=== PATIENT | female | born 1965 | race Caucasian/White ===

== ENCOUNTER 2020-07-25 09:16 | Outpatient (REF) | payer OTHER, SELFPAY ==
[2020-07-25 09:58] LABS: MANUAL DIFF FLAG NO
[2020-07-25 10:02] LABS: Basophils Absolute Auto 0.1 X10*3/uL (0.0-0.2); Basophils Percent Auto 1.1 % (0-2); Eosinophils Percent Auto 0.4 % (0-4); Hematocrit 28.2 % (37-47); Hemoglobin 7.1 g/dl (12.0-16.0); Imm Gran Abs Auto 0.01 X10*3/uL (0.00-0.03); Imm Gran Pct Auto 0.2 % (0.0-0.4); Lymphocytes Absolute Auto 2.3 X10*3/uL (1.2-4.9); Lymphocytes Percent Auto 43.4 % (20-40); Mean Corpuscular HGB Conc 25.2 g/dl (31.0-35.0); Mean Corpuscular Hemoglobin 15.6 pg (27.0-33.0); Monocytes Absolute Auto 0.7 X10*3/uL (0.1-1.2); Monocytes Percent Auto 12.1 % (2-11); Neutrophils Absolute Auto 2.3 X10*3/uL (2.0-8.3); Neutrophils Percent Auto 42.8 % (45-73); Platelet Count 341 X10*3/uL (160-400); Red Blood Count 4.54 X10*6/uL (4.20-5.50); Red Cell Distribution Width 19.9 % (11.0-16.0); White Blood Count 5.4 X10*3/uL (4.8-10.8)
[2020-07-25 10:04] LABS: Mean Corpuscular Volume 62.1 fL (80-98)
[2020-07-25 10:30] LABS: Blood Urea Nitrogen 13 mg/dL (9-16); Calcium 8.2 mg/dL (8.4-10.2); Chloride 106 mmol/L (96-108); Cholesterol 132 mg/dL
[2020-07-25 10:31] LABS: Alanine Aminotransferase 24 U/L (0-31); Albumin Level 3.7 g/dL (3.5-5.0); Alkaline Phosphatase 91 U/L (39-117); Anion Gap 12 (12-20); Aspartate Amino Transferase 30 U/L (5-31); Bilirubin Total 0.6 mg/dL (0.0-1.0); Carbon Dioxide 26 mmol/L (22-29); Estimated Glomerular Filt Rate > 60; Glucose Fasting 88 mg/dL (60-99); HDL Cholesterol 42 mg/dL; LDL Cholesterol Calculated 76 mg/dl; Potassium 4.5 mmol/l (3.3-5.1); Sodium 139 mmol/L (135-145); Total Protein 6.9 g/dL (6.5-8.0); Triglycerides 72 mg/dL
[2020-07-25 10:48] LABS: Free T4 (Free Thyroxine) 1.08 ng/dL (0.71-1.85); Thyroid Stimulating Hormone 1.76 uIU/mL (0.32-4.0)
[2020-07-25 10:56] LABS: Lipase 153 U/L (8-78)
[2020-07-25 11:06] LABS: Erythrocyte Sedimentation Rate 14 MM/HR (0-20)
[2020-07-25 11:10] LABS: Glucose Urine UA NEG (NEG); Leukocyte Esterase Urine NEG (NEG); Nitrite Urine NEG (NEG); PH 7.5 (5.0-8.0); Urine Blood NEG (NEG); Urine Ketones NEG (NEG); Urine Protein NEG (NEG-TRACE)
[2020-07-25 11:18] LABS: Appearance Urine CLEAR; Color Urine YELLOW
== END 2020-07-25 09:17 | disposition home or self-care (01) ==
LOC: HO.LAB 09:16
PROVIDERS: PCP Internal Medicine; Visit Provider Internal Medicine
DX: Z00.00 Encounter for general adult medical examination without abnormal findings (principal); R10.9 Unspecified abdominal pain; I83.10 Varicose veins of unspecified lower extremity with inflammation; E04.1 Nontoxic single thyroid nodule; E66.9 Obesity, unspecified
CPT/HCPCS: 36415; 80053; 80061; 81003; 83690; 84439; 84443; 85025; 85060; 85652

== ENCOUNTER 2020-08-17 09:52 | Outpatient (REF) | payer OTHER, SELFPAY ==
--- NOTE | 2020-08-17 09:55 | US_ITS ---
EXAMINATION: US THYROID CLINICAL INFORMATION: Thyroid nodule. COMPARISON: None TECHNIQUE: Linear transducer kumar-scale and color Doppler examination with attention to the region of the thyroid. FINDINGS: SIZE: Measurements of the thyroid lobes and nodules are given in sagittal, anteroposterior and transverse dimensions respectively. Right Thyroid Lobe: 5.5 x 2.4 x 2.2 cm, volume 15.1 mL. Parenchyma: The gland echotexture is heterogeneous. Thyroid vascularity is increased. Left Thyroid Lobe: 5.0 x 1.6 x 1.5 cm, volume 6.4 mL. Parenchyma: The gland echotexture is homogeneous. Thyroid vascularity is normal. Isthmus: 0.54 cm in maximum AP dimension. RIGHT THYROID LOBE: There are 2 nodules seen. 1. Location: Upper. Size: 0.6 x 0.4 x 0.48 cm. Nodule characteristics: Hypoechoic, smoothly marginated with intranodular flow.. 2. Location: Mid/lower. Size: 3.4 x 2.2 x 2.6 cm. Nodule characteristics: Hypoechoic, smoothly marginated with intranodular flow. ISTHMUS: There is 1 nodule seen. 1. Location: Upper isthmus. Size: 0.61 x 0.41 x 0.53 cm. Nodule characteristics: Hypoechoic, smoothly marginated with intranodular flow. LEFT THYROID LOBE: No nodules. NODES: No lymphadenopathy is seen in the tissue surrounding the thyroid gland. US/US thyroid IMPRESSION: Solitary spongiform-appearing nodule mid to lower pole right kidney, very low suspicion. Small subcentimeter nodules low suspicion. Various management parameters for solitary thyroid nodules are in the literature. According to the latest 2016 [place] [employer] guidelines, recommendations for thyroid nodules are as follows: Benign: Purely cystic nodules (no solid component). Estimated risk of malignancy < 1%. Recommendation: No biopsy or ultrasound follow up required. Very low suspicion: SPONGIFORM OR PARTIALLY CYSTIC NODULES without any of the sonographic features described in low, intermediate or high suspicions patterns. Estimated risk of malignancy < 3%. Recommendation: Consider FNA at > 2 cm. Observation without FNA is also a reasonable option. Recommend repeat ultrasound in 24 months for nodules measuring greater than 1 cm. Nodule measuring less than 1 cm do not require ultrasound follow up. Low suspicion: Isoechoic or hyperechoic solid nodule, or partially cystic nodule with eccentric solid areas, without microcalcification, irregular margin or extrathyroidal extension, or taller than wide shape. Estimated risk of malignancy 5-10%. Recommendation: FNA at > 1.5 cm. Recommend repeat ultrasound in 12-24 months for nodules measuring less than 1.5 cm. Intermediate suspicion: Hypoechoic solid nodule with smooth margins without microcalcification, extrathyroidal extension, or taller than wide shape. Estimated risk of malignancy 10-20%. Recommendation: FNA at > 1 cm. Recommend repeat ultrasound in 12-24 months for nodules measuring less than 1 cm. High suspicion: Solid hypoechoic nodule or solid hypoechoic component of a partially cystic nodule with one or more of the following features: irregular margins (infiltrative, microlobulated), microcalcifications, taller than wide shape, rim calcifications with small extrusive soft tissue component, evidence of extrathyroidal extension. Estimated risk of malignancy > 70-90%. Recommendation: FNA at > 1 cm. Recommend repeat ultrasound in 6-12 months for nodules measuring less than 1 cm. Follow-up as per HPI guidelines
== END 2020-08-17 09:53 | disposition home or self-care (01) ==
LOC: HO.US 09:52
PROVIDERS: Visit Provider Internal Medicine
DX: E04.1 Nontoxic single thyroid nodule (principal)
CPT/HCPCS: 76536

== ENCOUNTER 2020-08-20 07:59 | Outpatient (REF) | payer OTHER, SELFPAY | END 2020-08-20 08:00 | disposition home or self-care (01) | LOC: HO.MDS 07:59 | PROVIDERS: PCP Internal Medicine; Visit Provider Internal Medicine | DX: D50.9 Iron deficiency anemia, unspecified (principal) | CPT/HCPCS: 96365; 96366; J1200; J1750; Q0163 ==

== ENCOUNTER → 2020-09-01 09:29 | Outpatient (BNVA) | payer OTHER, SELFPAY | PROVIDERS: PCP Internal Medicine; Visit Provider Surgery Vascular Surgery | DX: I83.11 Varicose veins of right lower extremity with inflammation (principal) | CPT/HCPCS: 99202 ==

== ENCOUNTER 2020-09-30 10:07 | Outpatient (REF) | payer OTHER, SELFPAY ==
--- NOTE | ~2020-09-30 | US_ITS ---
EXAMINATION: BILATERAL LOWER EXTREMITY VENOUS ULTRASOUND (Reflux Exam) CLINICAL INDICATION: This a 55-year-old female with venous insufficiency. Varicose veins with inflammation. COMPARISON: None. TECHNIQUE: Color flow triplex imaging and compression Doppler was performed to evaluate both the deep and the superficial systems bilaterally. To evaluate the superficial system, the examination was performed in the upright position. Color-flow Doppler ultrasound and compression ultrasound were utilized. In addition, maneuvers were utilized to demonstrate reflux. FINDINGS: 1. DEEP VENOUS ULTRASOUND OF THE RIGHT LOWER EXTREMITY: Common Femoral Vein: Compressible, normal respiratory variation and augmented flow. Femoral vein: Compressible, normal color flow and augmentation. Popliteal Vein: Compressible, normal augmentation. Deep Reflux: There is no evidence of reflux in the deep system in either the common femoral vein or the popliteal vein. . There is no evidence of a Canchola's cyst. 2. SUPERFICIAL ULTRASOUND WITH DOPPLER OF RIGHT LOWER EXTREMITY GREAT SAPHENOUS VEIN: Saphenofemoral junction: 0.9 cm. There is no reflux at the saphenofemoral junction. Mid thigh: 0.5 cm. The reflux time is greater than 3 seconds, measuring 3084 ms. Above knee: 0.6 cm. The reflux time is 2008 ms. Below knee: 0.3 cm. There is no reflux at this level. Mid calf: 0.2 cm. There is no reflux this level. Ankle: 0.2 cm. There is no reflux this level. GSV REFLUX: There is isolated reflux beginning in the proximal thigh. DUPLICATED GREAT SAPHENOUS VEIN: There is a duplicated right great saphenous vein measuring 0.5 cm without reflux. SMALL SAPHENOUS VEIN: Upper: 0.4 cm Lower: 0.3 cm SSV REFLUX: No evidence of reflux. VEIN OF GIACOMINI: None Imaged. PERFORATORS: There is a 0.5 cm bracelet maker novelty off the right great saphenous vein in the proximal calf with the reflux time of 944 ms. There is a bracelet maker novelty off the proximal calf off the right great saphenous vein measuring 0.2 cm without reflux. VARICOSITIES: There are multiple varicose veins measuring 0.3 cm and 0.4 cm, respectively with reflux. In the proximal calf off the right great saphenous vein with the reflux time of 2656 ms. In the proximal calf of the right great saphenous vein measuring 1300 ms of reflux. There is a focal area of superficial thrombophlebitis in the proximal right calf varicosity. 3. DEEP VENOUS ULTRASOUND OF THE LEFT LOWER EXTREMITY: Common Femoral Vein: Compressible, normal respiratory variation and augmented flow. Femoral vein: Compressible, normal color flow and augmentation. Popliteal Vein: Compressible, normal augmentation. Deep Reflux: There is no evidence of reflux in the deep system in either the common femoral vein or the popliteal vein. There is no evidence of a Canchola's cyst. 4. SUPERFICIAL ULTRASOUND WITH DOPPLER OF LEFT LOWER EXTREMITY GREAT SAPHENOUS VEIN: Saphenofemoral junction: 0.5 cm. There is no reflux at this level. Mid thigh: 0.4 cm Above knee: 0.3 cm. There is no reflux at this level and above. Below knee: 0.2 cm. There is reflux of 1696 ms. Mid calf: 0.2 cm. There is no reflux at this level. Ankle: 0.2 cm. There is no reflux at this level. GSV REFLUX: No evidence of reflux. DUPLICATED GREAT SAPHENOUS VEIN: There is a 0.4 cm left duplicated medial great saphenous vein without reflux. SMALL SAPHENOUS VEIN: Upper: 0.5 cm Lower: 0.4 cm SSV REFLUX: No evidence of reflux. VEIN OF GIACOMINI: None Imaged. PERFORATORS: There is a 0.3 cm bracelet maker novelty off the left great saphenous vein in the mid calf without reflux. VARICOSITIES: None Imaged US/US venous duplex LE BI IMPRESSION: 1. There is a patent right great saphenous vein without reflux at the saphenofemoral junction. There is reflux of begins at the right proximal thigh which extends to the knee. At these levels the reflux is greater than 500 ms. 2. There is a patent right lateral great saphenous vein without reflux. 3. There is a patent right small saphenous vein measuring 0.4 cm without reflux at the junction. 4. There are perforators and varicose veins measure greater than 0.3 cm with reflux noted in the right calf. 5. There is focal superficial thrombophlebitis in a right calf varicose vein. 6. There is a patent left great saphenous vein with only isolated reflux at the below-knee region but not at the saphenofemoral junction. 7. There is a duplicated left medial great saphenous vein without reflux. 8. There is a patent left small saphenous vein without reflux. 9. There are perforators in the left mid calf without reflux.
== END 2020-09-30 10:08 | disposition home or self-care (01) ==
LOC: HO.US 10:07
PROVIDERS: Visit Provider Surgery Vascular Surgery
DX: I83.893 Varicose veins of bilateral lower extremities with other complications (principal); I83.11 Varicose veins of right lower extremity with inflammation
CPT/HCPCS: 93970

== ENCOUNTER 2021-09-15 09:46 | Outpatient (REF) | payer OTHER, SELFPAY ==
--- NOTE | ~2021-09-15 | MM_ITS ---
EXAMINATION: MM SCREENING DIGITAL BREAST TOMOSYNTHESIS, BILATERAL CLINICAL INFORMATION: Screening. Asymptomatic. The lifetime risk of breast cancer based on the Tyrer-Cuzick Model is 6%. COMPARISON: None (current study represents new baseline exam). TECHNIQUE: Digital breast tomosynthesis is performed in both the craniocaudal and mediolateral oblique views along with computer-aided detection (CAD). Synthesized 2D images are generated from the tomosynthesis. FINDINGS: There are scattered areas of fibroglandular density (ACR BI-RADS breast composition Category b). There are no significant masses, abnormal calcifications, or other abnormalities. Small circumscribed nodule mid inner right breast on CC view has notch-like contour on MLO tomography suggesting intramammary node. The axillary and skin contours are unremarkable. MM/MM tomosynthesis screening BI IMPRESSION: No mammographic evidence of malignancy. ASSESSMENT: BI-RADS 2: Benign RECOMMENDATION: Routine annual mammography screening. This patient's information was entered into a reminder system with a target due date for their next mammogram.
== END 2021-09-15 09:47 | disposition home or self-care (01) ==
LOC: HO.MAMMO 09:46
PROVIDERS: PCP Internal Medicine; Visit Provider Internal Medicine
DX: Z12.31 Encounter for screening mammogram for malignant neoplasm of breast (principal)
CPT/HCPCS: 77063; 77067

== ENCOUNTER 2022-08-17 13:14 | Outpatient (REF) | payer OTHER, SELFPAY ==
--- NOTE | ~2022-08-17 | XR_ITS ---
EXAMINATION: XR HAND, RIGHT CLINICAL INFORMATION: Right index finger pain. COMPARISON: None TECHNIQUE: PA, lateral, and oblique views of the right hand. FINDINGS: There is no evidence of acute fracture or dislocation of the right hand. No destructive bony lesions identified. Joint spaces are generally maintained. There is some mild spurring seen about the distal interphalangeal joints of the 2nd, 3rd, and 5th fingers. No definite erosive changes are identified. XR/XR hand RT 2V IMPRESSION: Mild degenerative change of the right hand as described without evidence of acute fracture or dislocation.
--- NOTE | ~2022-08-17 | XR_ITS ---
EXAMINATION: XR SHOULDER, LEFT CLINICAL INFORMATION: Left shoulder pain. COMPARISON: 07/13/2011 TECHNIQUE: AP external rotation, Grashey, scapular Y, and axillary views of the left shoulder. FINDINGS: There is no evidence of acute fracture or dislocation of the right shoulder. No evidence of calcific tendinitis. Acromioclavicular joint appears unremarkable. No widening of the coracoclavicular space is seen. There is minor spurring about the glenohumeral joint without joint space narrowing. XR/XR shoulder LT min 2V IMPRESSION: Mild degenerative change of the glenohumeral joint.
== END 2022-08-17 13:15 | disposition home or self-care (01) ==
LOC: HO.XRAY 13:14
PROVIDERS: PCP Internal Medicine; Visit Provider Internal Medicine
DX: M25.512 Pain in left shoulder (principal); M79.641 Pain in right hand
CPT/HCPCS: 73030; 73120

== ENCOUNTER 2022-08-31 10:28 | Outpatient (REF) | payer OTHER, SELFPAY ==
--- NOTE | ~2022-08-31 | US_ITS ---
EXAMINATION: US THYROID CLINICAL INFORMATION: Nontoxic single thyroid nodule. COMPARISON: Ultrasound soft tissue head/neck thyroid dated 08/17/2020. TECHNIQUE: Linear transducer grayscale and color Doppler examination with attention to the region of the thyroid. FINDINGS: SIZE: Measurements of the thyroid lobes and nodules are given in sagittal, anteroposterior and transverse dimensions respectively. Right Thyroid Lobe: 6.3 x 2.5 x 2.8 cm, volume 23.1 mL. Previously 5.5 x 2.4 x 2.2 cm, volume 15.1 mL. Parenchyma: The gland echotexture is heterogeneous. Thyroid vascularity is normal. Left Thyroid Lobe: 4.4 x 1.7 x 1.7 cm, volume 6.7 mL. Previously 5.0 x 1.6 x 1.5 cm, volume 6.4 mL. Parenchyma: The gland echotexture is homogeneous. Thyroid vascularity is normal. Isthmus: 0.6 cm in maximum AP dimension. Previously 0.5 cm. Estimated total number of nodules greater than or equal to 1 cm: 1. E Learning Manager nodules are described as follows: 1. Location: Right superior. Size: 0.7 x 0.4 x 0.6 cm, volume 0.09 mL. Previously: 0.6 x 0.4 x 0.48 cm, volume 0.06 mL. Nodule characteristics: Composition: Solid/almost completely solid (2). Echogenicity: Hypoechoic (2). Shape: Not taller than wide (0). Margins: Smooth (0). Echogenic Foci: None (0). ACR TI-RADS total points: 4 ACR TI-RADS category: 4 Significant change in size (>/= 20% in 2 dimensions and minimal increase of 2 mm or 50% or greater increase in volume): No Change in features: No Change in ACR TI-RADS risk category: No 2. Location: Right mid/inferior. Size: 3.3 x 2.4 x 3.3 cm, volume 13.7 mL. Previously: 3.4 x 2.2 x 2.6 cm, volume 10.2 mL. Nodule characteristics: Composition: Mixed cystic and solid (1). Echogenicity: Isoechoic (1). Shape: Not taller than wide (0). Margins: Smooth (0). Echogenic Foci: None (0). ACR TI-RADS total points: 2 ACR TI-RADS category: 2 Significant change in size (>/= 20% in 2 dimensions and minimal increase of 2 mm or 50% or greater increase in volume): No Change in features: No Change in ACR TI-RADS risk category: No NODES: No lymphadenopathy is seen in the tissue surrounding the thyroid gland. US/US thyroid IMPRESSION: 2 unchanged thyroid nodules, the largest 3.3 cm in the right inferior thyroid. No imaging follow-up recommended per ACR TI-RADS criteria. ACR TI-RADS RECOMMENDATION REFERENCE: Ultrasound-guided fine-needle aspiration, followup ultrasound, no further follow up. * TR1 (0 point) and TR 2 (2 points): No FNA or follow up * TR3 (3 points): FNA if more than or equal to 2.5 cm in maximum dimension, followup ultrasound in 1, 3 and 5 years if 1.5 to 2.4 cm in maximum dimension. * TR4 (4-6 points): FNA if more than or equal to 1.5 cm in maximum dimension, followup ultrasound in 1, 2, 3 and 5 years if 1 to 1.4 cm in maximum dimension. * TR5 (more than or equal to 7 points): FNA if more than or equal to 1 cm in maximum dimension, followup ultrasound every year for 5 years if 0.5 to 0.9 cm in maximum dimension. * TR3, TR4 or TR5 nodules that are below the size threshold for follow up receive no follow up.
== END 2022-08-31 10:29 | disposition home or self-care (01) ==
LOC: HO.US 10:28
PROVIDERS: Visit Provider Internal Medicine
DX: E04.1 Nontoxic single thyroid nodule (principal)
CPT/HCPCS: 76536

== ENCOUNTER → 2022-09-01 10:40 | Outpatient (BNVA) | payer OTHER, SELFPAY | PROVIDERS: PCP Internal Medicine; Visit Provider Physician Assistant | DX: M19.012 Primary osteoarthritis, left shoulder (principal); M75.82 Other shoulder lesions, left shoulder; M77.8 Other enthesopathies, not elsewhere classified | CPT/HCPCS: 99202 ==

== ENCOUNTER 2022-09-21 09:56 | Outpatient (REF) | payer OTHER, SELFPAY ==
--- NOTE | ~2022-09-21 | MM_ITS ---
EXAMINATION: MM SCREENING DIGITAL BREAST TOMOSYNTHESIS, BILATERAL CLINICAL INFORMATION: Screening. Asymptomatic. The lifetime risk of breast cancer based on the Tyrer-Cuzick Model is 6%. COMPARISON: Mammography: 09/15/2021 (new baseline) TECHNIQUE: Digital breast tomosynthesis is performed in both the craniocaudal and mediolateral oblique views along with computer-aided detection (CAD). Synthesized 2D images are generated from the tomosynthesis. Additional views are obtained: Right MLO, left MLO x2. FINDINGS: There are scattered areas of fibroglandular density (ACR BI-RADS breast composition Category b). There are no significant masses, abnormal calcifications, or other abnormalities. Recommend pattern is similar to prior new baseline exam. There is a stable small nodule anterior medial right breast possibly intraparenchymal node. No developing density or architectural abnormality. The axilla are unremarkable. MM/MM tomosynthesis screening BI IMPRESSION: No mammographic evidence of malignancy. ASSESSMENT: BI-RADS 2: Benign RECOMMENDATION: Routine annual mammography screening. This patient's information was entered into a reminder system with a target due date for their next mammogram.
== END 2022-09-21 09:57 | disposition home or self-care (01) ==
LOC: HO.MAMMO 09:56
PROVIDERS: PCP Internal Medicine; Visit Provider Internal Medicine
DX: Z12.31 Encounter for screening mammogram for malignant neoplasm of breast (principal)
CPT/HCPCS: 77063; 77067

== ENCOUNTER 2022-10-25 11:00 | Outpatient (RCR) | payer OTHER, SELFPAY ==
--- NOTE | 2022-09-23 11:01 | MHC.PT.EP ---
[facility] [place] [facility] [place] [facility] [place] [facility] [address] Ravi Escudero [address] [phone] F: [phone] F: [phone] F: [phone] F: [phone] Physical Therapy Plan of Care Date of Evaluation: Date of Surgery: Diagnosis: PT eval and treat- M77.8 Other entheseopatheies ROM gentle, strength, RTC and periscap L shoulder tendonitis signed by CLARISA Silva 09/01/22 Assessment: Pt is RHD 57 y/o female, referred to PT for treatment of L shoulder pain following history of sx which have been going on for the past few months. Pt expressing one day she observed her inability to lift a 3# weight overhead when attempting to exercise. Pt exhibits decreased active ROM into abduction, (+) Hernandez- Nam, and painful arc. Pt exhibits weakness and reports difficulty reaching over her head. Intolerance for holding/carrying/lifting objects over her head into the cabinet. She expresses sx with reaching behind her back and with end range ER. Pt would benefit from skilled PT services 2x/week x 4 weeks to address impairments in ROM/strength. Concern for possible RTC compromise is noted due to GH mechanics, weakness, history of repetitive work history, onset of sx, and impaired ROM/special testing. Pt will be implemented in an AAROM program, periscap and RTC strengthening program. Pt reports deferring option of receiving a cortisone injection at time of her appt on 09/01/22. She expresses difficulty sleeping and poor tolerance for SL positions/transitional movements. PMH significant for history of severe iron deficiency anemia resulting in hx previous iron infusions, gastric bypass surgery, and b12 deficiency. Pt is employed as a van pool driver engineer and denies difficulty with work tasks in regard to her L shoulder sx. Frequency and Duration: The patient will be seen 1-2x/week x 4 weeks Short Term Goals: 1. AAROM L shoulder flexion to 130 degrees. 2. Initiate scapular strengthening activities. 3. Initiate HEP. 4. AAROM IR to midline L4. 5. AAROM scaption to 120 degrees to be able to reach overhead with L UE. Bottle Inspector Goals: 1. I HEP. 2. Strength 5/5 R shoulder abduction. 3. Active elevation with good understanding joint protection. 4. Good lifting mechanics overhead with sx <2/10 L shoulder. 5. AAROM IR midline L2. Treatment Plan: Modalities to reduce pain, spasms and effusion. Manual therapy to restore motion and function. Therapeutic exercise to improve strength and flexibility. Neuromuscular re-education for posture and balance. Therapeutic activities to return to functional activities of daily living. Electronically signed by: Tonya Pickett PT, DPT Please sign and return to therapist. Thank you for your referral.
== END 2023-09-14 08:42 | disposition home or self-care (01) ==
LOC: HO.PTWFD 11:00
PROVIDERS: PCP Internal Medicine; Visit Provider Physician Assistant
DX: M77.8 Other enthesopathies, not elsewhere classified (principal)
CPT/HCPCS: 97110; 97140; 97161; 97535

== ENCOUNTER → 2022-11-07 10:01 | Outpatient (BNVA) | payer OTHER, SELFPAY | PROVIDERS: PCP Internal Medicine; Visit Provider Physician Assistant | DX: M77.8 Other enthesopathies, not elsewhere classified (principal); M75.82 Other shoulder lesions, left shoulder; M19.012 Primary osteoarthritis, left shoulder | CPT/HCPCS: 99212 ==

== ENCOUNTER 2022-12-08 07:45 | Outpatient (REF) | payer OTHER, SELFPAY ==
[2022-12-08 07:56] LABS: MANUAL DIFF FLAG NO
[2022-12-08 08:18] LABS: Basophils Percent Auto 0.6 % (0-2); Eosinophils Absolute Auto 0.3 X10*3/uL (0.0-0.4); Hematocrit 45.4 % (37.0-47.0); Hemoglobin 14.8 g/dl (12.0-16.0); Imm Gran Abs Auto 0.01 X10*3/uL (0.00-0.03); Imm Gran Pct Auto 0.2 % (0.0-0.4); Immature Retic Fraction 8.8 % (3.0-15.9); Lymphocytes Absolute Auto 2.4 X10*3/uL (1.2-4.9); Lymphocytes Percent Auto 36.3 % (20-40); Mean Corpuscular HGB Conc 32.6 g/dl (31.0-35.0); Mean Corpuscular Volume 91.9 fL (80.0-98.0); Mean Platelet Volume 9.7 fL (9.4-12.3); Monocytes Absolute Auto 0.7 X10*3/uL (0.1-1.2); Neutrophils Absolute Auto 3.2 x10*3/uL (2.0-8.3); Neutrophils Percent Auto 48.9 % (45-73); Platelet Count 254 X10*3/uL (160-400); Red Blood Count 4.94 X10*6/uL (4.20-5.50); Retic HGB Equivalent 36.3 pg (30.0-35.0); Reticulocyte Percent 2.1 % (0.5-1.8); Reticulocytes Absolute 0.104 X10*6/uL (0.026-0.095); White Blood Count 6.5 X10*3/uL (4.8-10.8)
[2022-12-08 08:53] LABS: Alanine Aminotransferase 30 U/L (0-31); Alkaline Phosphatase 96 U/L (39-117); Anion Gap 13 (12-20); Aspartate Amino Transferase 22 U/L (5-31); Bilirubin Total 0.4 mg/dL (0.0-1.0); Blood Urea Nitrogen 15 mg/dL (9-16); Calcium 8.7 mg/dL (8.4-10.2); Carbon Dioxide 27 mmol/L (22-29); Chloride 107 mmol/L (96-108); Cholesterol 221 mg/dL; Estimated Glomerular Filt Rate > 60; Glucose Random 93 mg/dL (60-115); HDL Cholesterol 55 mg/dL; Iron 93 mcg/dL (30-160); LDL Cholesterol Calculated 138 mg/dl; Percent Iron Saturation 27 % (15-50); Potassium 4.5 mmol/L (3.3-5.1); Sodium 142 mmol/L (135-145); Total Iron Binding Capacity 343 mcg/dL (228-428); Total Protein 6.7 g/dL (6.5-8.0); Triglycerides 144 mg/dL; Unsaturated Iron Binding 250 ug/dL
[2022-12-08 09:24] LABS: Ferritin 17 ng/mL (10-250); Free T4 (Free Thyroxine) 0.96 ng/dL (0.71-1.85); Thyroid Stimulating Hormone 2.34 uIU/mL (0.32-4.0); Vitamin B12 1628 pg/mL (200-900); Vitamin D 25-OH Total 33.2 ng/mL (>30)
== END 2022-12-08 07:46 | disposition home or self-care (01) ==
LOC: HO.LAB 07:45
PROVIDERS: PCP Internal Medicine; Visit Provider Internal Medicine
DX: D50.9 Iron deficiency anemia, unspecified (principal); E66.9 Obesity, unspecified; E78.00 Pure hypercholesterolemia, unspecified
CPT/HCPCS: 36415; 80053; 80061; 82306; 82607; 82728; 82746; 83540; 84439; 84443; 85025; 85045

== ENCOUNTER 2023-08-08 10:09 | Outpatient (AMB) | payer OTHER, SELFPAY ==
[2023-08-08 10:10] VITALS: BP 124/86; PULSE 70; O2SAT 97; BMI 43.0
--- NOTE | 2023-08-08 10:10 | A.OFFPC_ITS ---
Vital Signs 08/08/23 10:10 Height 5 ft 3 in Weight 242 lb 8 oz BMI 43.0 BP 124/86 Blood Pressure Location Lt brachial Position Sitting Pulse 70 Pulse Source Pulse Oximeter Pulse Oximetry (%) 97 Oxygen Delivery Method Room Air Intake Visit Reasons: PE+ NEEDS PHQ9/THRIVE Adult Basic Education Manager Required: No Accompanied by: Self / Same As Patient Allergies adhesive Allergy (Intermediate, Verified 08/08/23 10:10) Blister oxycodone [From Percocet] Adverse Reaction (Verified 08/08/23 10:10) Nausea Medication List - Last Reconciled 08/08/23 by Clemente Fermin MD acetaminophen (Tylenol Extra Strength) 500 mg PO QID PRN cyanocobalamin (vitamin B-12) (Vitamin B-12) 1,000 mcg PO DAILY multivitamin 1 tab PO DAILY Tobacco use date assessed: 01/25/23 Dental Screening Dental Screen Date: 08/08/23 Did you have a dental visit in the last 12 months?: No Did you have a dental problem in the last 6 months where you did not have access to dental care?: No Was dental information given to patient?: No HPI PE+ NEEDS PHQ9/THRIVE HPI Details 58-year-old obese female with a history of hypercholesterolemia coming in for physical exam. Last seen in January 2023 follows up with thyroid nodule on the right and left shoulder pain. [facility] Medical History (Updated 08/08/23 @ 10:52 by Clemente Fermin MD) Colon cancer screening Breast cancer screening by mammogram Colonoscopy refused Thrombophlebitis of right leg Obesity (BMI 30-39.9) Varicose veins of lower extremities with inflammation Right thyroid nodule Surgical History S/P gastric bypass Previous section Family History Maternal Aunt Diabetes mellitus Father Medical history unknown FH: prostate cancer Mother Hypertension Social History (Updated 08/08/23 @ 10:44 by Clemente Fermin MD) Housing: Apartment Alcohol intake: current Alcohol intake frequency: holidays/special occasions only Comment: once a week2 beers Patient Tobacco Use Status: Never used Tobacco e-Cigarette/Vaping Use: Never Used Second Hand Smoke Exposure: No service: No Current occupational status: employed Current occupation: [employer] Gender identity: Female Cognitive needs: No Hearing needs: No Vision needs: Yes Questionnaire PHQ-9 Over the last 2 weeks, how often have you been bothered by any of the following problems? 1. Little interest or pleasure in doing things: not at all 2. Feeling down, depressed, or hopeless: not at all 3. Trouble falling or staying asleep, or sleeping too much: not at all 4. Feeling tired or having little energy: not at all 5. Poor appetite or overeating: not at all 6. Feeling bad about yourself - or that you are a failure or have let yourself or your family down: not at all 7. Trouble concentrating on things, such as reading the newspaper or watching television: not at all 8. Moving or speaking so slowly that other people could have noticed. Or the opposite - being so fidgety or restless that you have been moving around a lot more than usual: not at all 9. Thoughts that you would be better off or of hurting yourself in some way: not at all Total score: 0 Depression Screening Interpretation: Negative Depression Screening Done: Yes 63193 - PHQ-9 Billing: Yes Source: Developed by Drs. Abraham Leavitt, Joan Cortes, Navin Martin and colleagues, with an educational edith from [employer]. Thrive Questionnaire Date Thrive assessed: 08/08/23 I am a: Patient What is your living situation today?: I have a steady place to live Within the past 12 months, did the food you bought not last and you didn't have the money to get more?: Never true Within the past 12 months, did you worry whether your food would run out before you got money to buy more?: Never true Do you have trouble paying for medicines?: No Do you have trouble getting transportation to medical appointments?: No Do you have trouble paying your heating and electricity bill?: No Do you have trouble taking care of your child, family member or friend?: No Do you have trouble with day-to-day activities such as bathing, preparing meals, shopping, managing finances, etc.?: No Are you currently unemployed and looking for a job?: No Are you interested in more education?: No Please select the resources that you would like help with: None Currently or been in a relationship where the following occur: no concerns reported AUDIT C Alcohol Use Questionnaire (AUDIT-C) 1. How often do you have a drink containing alcohol?: Monthly or less 2. How many drinks containing alcohol do you have on a typical day when you are drinking?: 1 or 2 3. How often do you have six or more drinks on one occasion?: Never Total Score: 1 ALIREZA-7 AMB Questionnaire ALIREZA-7 Date ALIREZA - 7 assessed: 08/08/23 Feeling nervous, anxious, or on edge: 0 = Not at all Not being able to stop or control worryin = Not at all Worrying too much about different things: 0 = Not at all Trouble relaxin = Not at all Being so restless that it is hard to sit still: 0 = Not at all Becoming easily annoyed or irritable: 0 = Not at all Feeling afraid as if something awful might happen: 0 = Not at all Total ALIREAZ-7 score (0-4 normal; 5-9 mild; 10-14 moderate; 15-21 severe): 0 Source: Developed by Drs. Abraham Leavitt, Joan Cortes, Navin Martin and colleagues, with an educational edith from [employer]. ALIREZA-7 Assessment Billing ALIREZA-7 Assessment Tool: ALIREZA-7 Assessment 82460 Review of Systems Const Denies poor appetite and Denies weakness Eyes Denies no additional complaints ENT Reports Normal hearing present, Denies dizziness, Denies nasal congestion, Denies tinnitus and Denies sore throat Card Denies chest pain, Denies syncope, Denies rapid heart rate and Denies dyspnea Resp Denies cough and Denies dyspnea GI Denies change in stool character, Reports constipation, Denies diarrhea, Denies nausea and Denies vomiting Denies urinary frequency, Denies difficulty voiding and Denies dysuria Neuro Reports Normal hearing present, Denies confusion, Denies dizziness, Denies syncope and Denies weakness Psych Denies confusion Physical exam (Primary Care) Vital Signs: Last Vital Signs Pulse 70 08/08/23 10:10 BP 124/86 08/08/23 10:10 Pulse Ox 97 08/08/23 10:10 Oxygen Delivery Method Room Air 08/08/23 10:10 BMI result Body Mass Index 43.0 Tobacco/Smoking Status: Tobacco use Status Tobacco use date assessed 01/25/23 08/08/23 10:17 Patient Tobacco Use Status Never used Tobacco 08/08/23 10:17 e-Cigarette/Vaping Use Never Used 08/08/23 10:17 PHQ-9: PHQ-9 Score PHQ-9: Total score 0 08/08/23 10:20 Depression Screening Interpretation: Negative Thrive Assessment: Date of Thrive Assessment Date Thrive assessed 08/08/23 08/08/23 10:17 Currently or been in a relationship where the following occur: no concerns reported Const General: No confusion Orientation/consciousness: No confusion HENMT Head: Yes normocephalic Ears: external ears normal and TM's normal bilaterally Face and sinus: Yes normal facial exam Mouth: moist mucous membranes Throat: Yes tonsils normal Eyes Conjunctivae: conjunctivae normal Pupils: Equal, round and reactive pupils present and Pupil accommodation reflex normal Direct Ophthalmoscopy: normal light reflex Neck Neck: No lymphadenopathy Thyroid: Thyroid normal Chest Chest palpation & inspection: normal inspection of the chest Resp Effort & Inspection: normal respiratory effort and no audible wheezes Auscultation: clear to auscultation bilaterally, no crackles, no wheezes and lung sounds not diminished Cardio Rate: regular rate Rhythm: regular rhythm Peripheral pulses: radial pulses present and dorsalis pedis present GI Palpation (GI): no masses Auscultation: normal bowel sounds and normoactive bowel sounds Rectal Exam - Female: deferred Skin General skin exam: no rashes or lesions noted Rashes: no rashes Neuro General: No confusion Cranial nerves: Yes Equal, round and reactive pupils present and Yes Normal hearing present Cognition (Neuro): normal cognition Gait exam (Neuro): Normal gait present Motor exam (neuro): 5/5 motor strength present throughout Deep tendon reflexes (DTR's): Right brachioradialis reflex intensity grade: 2+, Left brachioradialis reflex intensity grade: 2+, Right patellar reflex intensity grade: 2+ and Left patellar reflex intensity grade: 2+ Extrem General: No edema Office Procedures Flu Questionnaire Does the patient have a severe egg allergy?: No Does the patient have severe life threatening allergies?: No Does the patient have a fever or illness today?: No Has the patient ever had Guillain-Lynn Syndrome?: No Has the patient ever had any past reaction to a flu shot?: No Immunizations flu vacc [id number] 6mos up(PF) 60 mcg(15 mcgx4)/0.5 mL IM syringe Performing Provider: Clemente Fermin MD [facility] Administered by: Franci Caballero on 08/08/23 10:24 Dose Route Admin Location Dispensed Lot Number Expiration Date NDC Weatherization Installer 0.5 mL IM Left Deltoid 0.5 mL [id number] 02/18/24 [id number] [employer] VIS Given Date VIS Provided VIS Publication Date 08/08/23 Single Vaccine 21 Eligibility Eligibility Date Funding Source Not [facility] Eligible 08/08/23 Private Assessment and Plan Assessment & Plan (1) Annual physical exam: Code(s): Z00.00 - Encounter for general adult medical examination without abnormal findings (2) Right thyroid nodule: Comment: July 2020, August 2022 2 unchanged thyroid nodules, the largest 3.3 cm in the right inferior thyroid. No imaging follow-up recommended per ACR TI-RADS criteria. Code(s): E04.1 - Nontoxic single thyroid nodule (3) Hypercholesterolemia: Code(s): E78.00 - Pure hypercholesterolemia, unspecified Plan: Avoid fried foods, chicken skin, eggs, butter margarine, pastries and meat. Be it pork or beef they have a lot of cholesterol LDL goal of less than 130 and triglyceride of less than 150 (4) Obesity (BMI 30-39.9): Comment: S/P gastric bypass in the mid Code(s): E66.9 - Obesity, unspecified Plan: Diet and exercise (5) Cervical cancer screening: Code(s): Z12.4 - Encounter for screening for malignant neoplasm of cervix (6) Attention deficit: Code(s): R41.840 - Attention and concentration deficit Orders: Orders Influenza [id number] Immunization Today Z23 - Encounter for immunization Referrals Neuropsychiatry Referral R41.840 - Attention and concentration deficit Coding Level of Care Code Est Pt Prev Care 40-64y(25886) Diagnoses Annual physical exam Z00.00 Right thyroid nodule E04.1 Hypercholesterolemia E78.00 Obesity (BMI 30-39.9) E66.9 Cervical cancer screening Z12.4 Attention deficit R41.840 Additional Codes ALIREZA-7 Assessment Billing - ALIREZA-7 Assessment Tool: ALIREZA-7 Assessment 69173 ([id number])
== END 2023-08-08 10:56 | disposition home or self-care (01) ==
PROVIDERS: Visit Provider Internal Medicine
DX: Z00.00 Encounter for general adult medical examination without abnormal findings (principal); E66.9 Obesity, unspecified; Z68.41 Body mass index [BMI] 40.0-44.9, adult; Z23 Encounter for immunization; E04.1 Nontoxic single thyroid nodule; E78.00 Pure hypercholesterolemia, unspecified; R41.840 Attention and concentration deficit
CPT/HCPCS: 90471; 90686; 99396

== ENCOUNTER 2023-09-25 11:09 | Outpatient (REF) | payer OTHER, SELFPAY ==
--- NOTE | ~2023-09-25 | MM_ITS ---
EXAMINATION: MM SCREENING DIGITAL BREAST TOMOSYNTHESIS, BILATERAL CLINICAL INFORMATION: Screening. Asymptomatic. COMPARISON: Mammography: This study is compared with prior exams dating back to 2021. TECHNIQUE: Digital breast tomosynthesis is performed in both the craniocaudal and mediolateral oblique views along with computer-aided detection (CAD). Synthesized 2D images are generated from the tomosynthesis. FINDINGS: The breasts are almost entirely fatty (ACR BI-RADS breast composition Category a). There are no significant masses, abnormal calcifications, or other abnormalities. MM/MM tomosynthesis screening BI IMPRESSION: No mammographic evidence of malignancy. ASSESSMENT: BI-RADS BI-RADS 1 - Negative RECOMMENDATION: Routine annual mammography screening. 1 year F/U This examination should not preclude the clinical evaluation of a suspicious palpable abnormality. This patient's information was entered into a reminder system with a target due date for their next mammogram.
== END 2023-09-25 11:10 | disposition home or self-care (01) ==
LOC: HO.MAMMO 11:09
PROVIDERS: PCP Internal Medicine; Visit Provider Internal Medicine
DX: Z12.31 Encounter for screening mammogram for malignant neoplasm of breast (principal)
CPT/HCPCS: 77063; 77067

== ENCOUNTER → 2023-09-25 11:15 | Outpatient (BNV) | payer OTHER, SELFPAY | PROVIDERS: PCP Internal Medicine; Visit Provider Radiology Diagnostic Radiology | DX: Z12.31 Encounter for screening mammogram for malignant neoplasm of breast (principal) | CPT/HCPCS: 77063; 77067 ==

== ENCOUNTER 2024-11-15 10:45 | Outpatient (REF) | payer OTHER, SELFPAY | END 2024-11-15 10:46 | disposition home or self-care (01) | LOC: HO.MAMMO 10:45 | PROVIDERS: PCP Internal Medicine; Visit Provider Internal Medicine | DX: Z12.31 Encounter for screening mammogram for malignant neoplasm of breast (principal) | CPT/HCPCS: 77063; 77067 ==

== ENCOUNTER → 2024-11-15 11:15 | Outpatient (BNV) | payer OTHER, SELFPAY | PROVIDERS: PCP Internal Medicine; Visit Provider Internal Medicine | DX: Z12.31 Encounter for screening mammogram for malignant neoplasm of breast (principal) | CPT/HCPCS: 77063; 77067 ==

== ENCOUNTER 2025-07-31 13:53 | Outpatient (AMB) | payer OTHER, SELFPAY ==
[2025-07-31 13:57] VITALS: BP 142/90; PULSE 73; O2SAT 97; BMI 42.9
--- NOTE | 2025-07-31 13:57 | A.OFFPC_ITS ---
Vital Signs 07/31/25 13:57 07/31/25 14:33 Height 5 ft 3 in Weight 242 lb 2 oz BMI 42.9 BP 142/90 H 138/88 Blood Pressure Location Lt brachial Lt brachial Position Sitting Sitting Pulse 73 Pulse Source Pulse Oximeter Pulse Oximetry (%) 97 Oxygen Delivery Method Room Air Intake Visit Reasons: annual exam Body Press Operator Required: No Accompanied by: Self / Same As Patient Allergies adhesive Allergy (Intermediate, Verified 07/31/25 14:07) Blister oxycodone (From Percocet) Adverse Reaction (Verified 07/31/25 14:07) Nausea Medication List - Last Reconciled 07/31/25 by Lynette Herrera PA-C acetaminophen (Tylenol Extra Strength) 500 mg PO QID PRN cyanocobalamin (vitamin B-12) (Vitamin B-12) 1,000 mcg PO DAILY multivitamin 1 tab PO DAILY Tobacco use date assessed: 07/31/25 Dental Screening Dental Screen Date: 07/31/25 Did you have a dental visit in the last 12 months?: No Did you have a dental problem in the last 6 months where you did not have access to dental care?: No Was dental information given to patient?: No HPI annual exam HPI Details 60-year-old female with past medical his tory of varicose veins, iron- deficiency anemia, attention deficit and hypercholesterolemia last seen 07/2023 coming in for annual exam. Presenting for an annual wellness visit. She reports intermittent pain on the side of her foot for the past couple of months, which she describes as stabbing. The pain is present daily but varies in intensity, sometimes worsening with standing or walking, and at other times is not noticeable. She reports that switching to shoes from flip-flops seemed to exacerbate the pain, and hitting it on a chair caused severe pain. She typically manages the pain by ignoring it or occasionally taking Tylenol. Mammogram: 10/2024 Pap smear: referral placed today Colonoscopy: Cologuard 2022 Vaccinations: UTD flu given today COUNTS INCLUDE 234 BEDS AT [facility] Medical History Colon cancer screening Breast cancer screening by mammogram Colonoscopy refused Thrombophlebitis of right leg Obesity (BMI 30-39.9) Varicose veins of lower extremities with inflammation Right thyroid nodule Surgical History S/P gastric bypass Previous section Family History Maternal Aunt Diabetes mellitus Father Medical history unknown FH: prostate cancer Mother Hypertension Social History Housing: Apartment Alcohol intake: current Alcohol intake frequency: holidays/special occasions only Comment: once a week2 beers Patient Tobacco Use Status: Never used Tobacco e-Cigarette/Vaping Use: Never Used Second Hand Smoke Exposure: No service: No Current occupational status: employed 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 1. Little interest or pleasure in doing things: not at all 2. Feeling down, depressed, or hopeless: not at all 3. Trouble falling or staying asleep, or sleeping too much: not at all 4. Feeling tired or having little energy: not at all 5. Poor appetite or overeating: not at all 6. Feeling bad about yourself - or that you are a failure or have let yourself or your family down: not at all 7. Trouble concentrating on things, such as reading the newspaper or watching television: not at all 8. Moving or speaking so slowly that other people could have noticed. Or the opposite - being so fidgety or restless that you have been moving around a lot more than usual: not at all 9. Thoughts that you would be better off or of hurting yourself in some way: not at all Total score: 0 Depression Screening Interpretation: Negative Depression Screening Done: Yes Source: Developed by Drs. Abraham Leavitt, Joan Cortes, Navin Martin and colleagues, with an educational edith from [employer]. Thrive Questionnaire Date Thrive assessed: 07/31/25 I am a: Patient What is your living situation today?: I have a steady place to live Within the past 12 months, did the food you bought not last and you didn't have the money to get more?: Never true Within the past 12 months, did you worry whether your food would run out before you got money to buy more?: Never true Do you have trouble paying for medicines?: No Do you have trouble getting transportation to medical appointments?: No Do you have trouble paying your heating and electricity bill?: No Do you have trouble taking care of your child, family member or friend?: No Do you have trouble with day-to-day activities such as bathing, preparing meals, shopping, managing finances, etc.?: No Are you currently unemployed and looking for a job?: No Are you interested in more education?: No Please select the resources that you would like help with: None Currently or been in a relationship where the following occur: No concerns reported THRIVE Score: 0 AUDIT C Alcohol Use Questionnaire (AUDIT-C) 1. How often do you have a drink containing alcohol?: Monthly or less 2. How many drinks containing alcohol do you have on a typical day when you are drinking?: 1 or 2 3. How often do you have six or more drinks on one occasion?: Never Total Score: 1 ALIREZA-7 AMB Questionnaire ALIREZA-7 Date ALIREZA - 7 assessed: 07/31/25 Feeling nervous, anxious, or on edge: 0 = Not at all Not being able to stop or control worryin = Not at all Worrying too much about different things: 0 = Not at all Trouble relaxin = Not at all Being so restless that it is hard to sit still: 0 = Not at all Becoming easily annoyed or irritable: 0 = Not at all Feeling afraid as if something awful might happen: 0 = Not at all Total ALIREZA-7 score (0-4 normal; 5-9 mild; 10-14 moderate; 15-21 severe): 0 Source: Developed by Drs. Abraham Leavitt, Joan Cortes, Navin Martin and colleagues, with an educational edith from [employer]. Review of Systems Const Denies body aches, Denies chills, Denies fever(s), Denies headache(s) and Denies poor appetite Eyes Reports no additional complaints ENT Denies dysphagia, Denies dizziness, Denies headache(s) and Denies odynophagia Card Denies chest pain, Denies syncope, Denies edema, Denies irregular heart rhythm, Denies lightheadedness and Denies dyspnea Resp Denies cough and Denies dyspnea GI Denies abdominal pain, Denies constipation, Denies dysphagia, Denies diarrhea, Denies nausea, Denies odynophagia and Denies vomiting Reports no additional complaints Musc Reports as per HPI and Denies abnormal gait Skin/Breast Reports system reviewed and no additional complaints, except as documented Neuro Denies abnormal gait, Denies dizziness, Denies syncope and Denies headache(s) Psych Reports no additional complaints Physical exam (Primary Care) Vital Signs: Last Vital Signs Pulse 73 07/31/25 13:57 BP 138/88 07/31/25 14:33 Pulse Ox 97 07/31/25 13:57 Oxygen Delivery Method Room Air 07/31/25 13:57 BMI result Body Mass Index 42.9 Tobacco/Smoking Status: Tobacco use Status Tobacco use date assessed 07/31/25 07/31/25 14:04 Patient Tobacco Use Status Never used Tobacco 07/31/25 14:04 e-Cigarette/Vaping Use Never Used 07/31/25 14:04 PHQ-9: PHQ-9 Score PHQ-9: Total score 0 07/31/25 14:53 Depression Screening Interpretation: Negative Thrive Assessment: Date of Thrive Assessment Date Thrive assessed 07/31/25 07/31/25 14:04 Currently or been in a relationship where the following occur: No concerns reported Const General: cooperative, healthy appearing, comfortable and no acute distress Orientation/consciousness: patient oriented x3 HENMT Head: Yes normocephalic Ears: hearing grossly normal bilaterally General nose exam: Normal external nose present Face and sinus: Yes normal facial exam and Yes sinuses nontender Mouth: Normal oral and palatal mucosa present and tongue normal Throat: Yes posterior oropharynx normal Eyes General: appearance normal, both eyes and all related structures Conjunctivae: conjunctivae normal Pupils: Equal, round and reactive pupils present EOM: EOMs intact bilaterally and No Nystagmus present Neck Neck: Yes full ROM and Yes no lymphadenopathy Chest Chest palpation & inspection: normal inspection of the chest Resp Effort & Inspection: normal respiratory effort Auscultation: clear to auscultation bilaterally, no crackles, no rales, no rhon chi and no wheezes Cardio Rate: regular rate Rhythm: regular rhythm Peripheral pulses: radial pulses present and dorsalis pedis present GI Inspection: Yes normal to inspection and No Abdominal wall edema Palpation (GI): Soft to palpation, not firm and nontender Auscultation: normal bowel sounds Rectal Exam - Female: deferred General: Yes no CVA tenderness Back/Spine/Pelvis Back: no CVA tenderness Skin General skin exam: no rashes or lesions noted Neuro General: patient oriented x3 Cranial nerves: Yes Equal, round and reactive pupils present, Yes Midline tongue present, Yes Ability to bilaterally elevate shoulders present and No Nystagmus present Gait exam (Neuro): Normal gait present Extrem Other: tenderness to deep palpation of lateral aspect of left mid foot. Intact strength, sensation and pulses in LLE and no overlying bruising or swelling General: Yes normal to inspection, Yes full ROM and No edema Psych Speech and movement: Normal speech and movement present Affect: normal affect Attitude: cooperative Insight: Good insight present (Psych) Judgement: Good judgement present (Psych) Office Procedures Flu Questionnaire Does the patient have a severe egg allergy?: No Does the patient have severe life threatening allergies?: No Does the patient have a fever or illness today?: No Has the patient ever had Guillain-[place] Syndrome?: No Has the patient ever had any past reaction to a flu shot?: No Immunizations Fluarix [id number] (PF) 45 mcg (15 mcg x 3)/0.5 mL IM syringe Performing Provider: Lynette Herrera PA-C [facility] Administered by: Elis Tomlin LPN on 07/31/25 14:53 Dose Route Admin Location Dispensed Lot Number Expiration Date [facility] Advertising Vice President 0.5 mL IM Right Deltoid 0.5 mL [id number] 02/17/26 [id number] [employer] VIS Given Date VIS Provided VIS Publication Date 07/31/25 Single Vaccine 24 Eligibility Eligibility Date Funding Source Not [facility] Eligible 07/31/25 Private Coding Level of Care Code Est Pt Prev Care 40-64y([id number]) Diagnoses Annual physical exam Z00.00 Left foot pain M79.672 Elevated blood pressure reading without diagnosis of hypertension R03.0 Assessment & Plan Assessment & Plan (1) Annual physical exam: Code(s): Z00.00 - Encounter for general adult medical examination without abnormal findings Category: Medical Plan: Patient is up to date on mammogram and colon cancer screening. She is overdue for blood work which has been ordered today. Healthy diet and regular exercise is encouraged. She will follow up in 2 months or sooner as needed. (2) Left foot pain: Code(s): M79.672 - Pain in left foot Category: Medical Plan: The patient complains of left foot pain that began a couple of months ago. Examination reveals tenderness on the lateral side of the foot, potentially due to irritation of a prominent bone, possibly a bone spur. An x-ray of the foot has been ordered to investigate for a potential bone spur or arthritis, though it is not expected to change person. Recommended management includes the use of insoles for comfort. If pain persists, referral to a detective youth bureau for custom insoles or injections is an option, although the patient is hesitant about injections. (3) Elevated blood pressure reading without diagnosis of hypertension: Code(s): R03.0 - Elevated blood-pressure reading, without diagnosis of hypertension Category: Medical Plan: The patient's blood pressure was rechecked at 138/88 mmHg, which is borderline high. Factors such as salt intake and stress were discussed as potential contributors. A prescription for a blood pressure cuff has been sent to a medical supply store for home monitoring. Educational materials on how to monitor blood pressure and what ranges are considered high have been provided. A follow-up visit in a couple of months is scheduled to recheck her blood pressure and review lab results. Plan This note was constructed using voice recognition software. While every effort has been made to ensure accuracy and corporate recycling manager, still areas may have been included sometimes these areas may affect the content or meeting of the given symptoms. Total time spent caring for the patient today was 30 minutes. This includes time spent before the visit reviewing the chart, time spent during the visit, and time spent after the visit and documentation. Patient was informed and verbally consented to the use of an ambient scribe for clinic note documentation during this visit. Orders: Orders MMR IgG Measles Mumps Rubella Today Z00.00 - Encounter for general adult medical examination without abnormal findings TSH reflex Free T4 Today E04.1 - Nontoxic single thyroid nodule, Z13.29 - Encounter for screening for other suspected endocrine disorder Vitamin B12 and Folate Today E53.8 - Deficiency of other specified B group vitamins, Z13.21 - Encounter for screening for nutritional disorder Varicella IgG Antibody Today Z00.00 - Encounter for general adult medical examination without abnormal findings XR foot LT min 3V Today M79.672 - Pain in left foot Vitamin D 25-OH Total Today Z13.21 - Encounter for screening for nutritional disorder Complete Blood Count Auto Diff Today D50.9 - Iron deficiency anemia, unspecified, Z13.0 - Encounter for screening for diseases of the blood and blood-forming organs and certain disorders involving the immune mechanism Comprehensive Met. Panel Today E66.9 - Obesity, unspecified, Z00.00 - Encounter for general adult medical examination without abnormal findings Hemoglobin A1c Today E11.65 - Type 2 diabetes mellitus with hyperglycemia, Z13.1 - Encounter for screening for diabetes mellitus Lipid Panel Today E78.00 - Pure hypercholesterolemia, unspecified Influenza [id number] Immunization Today Z23 - Encounter for immunization Referrals [facility] Referral Z12.4 - Encounter for screening for malignant neoplasm of cervix Medications: New blood pressure test kit-large As directed 1 ea 0RF R03.0 - Elevated blood- pressure reading, without diagnosis of hypertension blood pressure test kit-large As directed 1 ea 0RF R03.0 - Elevated blood- pressure reading, without diagnosis of hypertension
[2025-07-31 14:33] VITALS: BP 138/88
== END 2025-07-31 15:01 | disposition home or self-care (01) ==
LOC: HO.HMCH 13:54
PROVIDERS: PCP Internal Medicine
DX: Z00.00 Encounter for general adult medical examination without abnormal findings (principal); M79.672 Pain in left foot; R03.0 Elevated blood-pressure reading, without diagnosis of hypertension; Z23 Encounter for immunization

== ENCOUNTER → 2025-07-31 13:53 | Outpatient (BNVA) | payer OTHER, SELFPAY | PROVIDERS: PCP Internal Medicine | DX: Z00.00 Encounter for general adult medical examination without abnormal findings (principal); M79.672 Pain in left foot; R03.0 Elevated blood-pressure reading, without diagnosis of hypertension; E04.1 Nontoxic single thyroid nodule; E11.65 Type 2 diabetes mellitus with hyperglycemia; E53.8 Deficiency of other specified B group vitamins; E78.00 Pure hypercholesterolemia, unspecified; Z13.31 Encounter for screening for depression; Z13.39 Encounter for screening examination for other mental health and behavioral disorders | CPT/HCPCS: 90471; 90656; 96127; 99396 ==